=== PATIENT | male | born 1945 | race Caucasian/White ===

== ENCOUNTER 2016-11-06 10:04 | Emergency (ER) | payer OTHER ==
[2016-11-06] MEDS ORDERED: SODIUM CHLORIDE 0.9% 10 ML FLUSH FLUSH PRN (10:06)
[2016-11-06 10:09] VITALS: TEMP 97.5; BMI 27.6
[2016-11-06 10:20] LABS: AUTOMATED BASOPHIL 0.3 % (0-2); AUTOMATED EOSINOPHIL 1.3 % (0-5); AUTOMATED LYMPH 38.6 % (17-44); AUTOMATED MONOCYTE 13.7 % (3-10); AUTOMATED NEUTROPHIL 46.1 % (45-76); MPV 7.2 fL (7.4-10.4)
[2016-11-06 10:30] LABS: PARTIAL THROMB. TIME 42.4 SEC (22-35); PT-INR 1.2
[2016-11-06 10:40] LABS: BLOOD UREA NITROGEN 21 MG/DL (9-20); CALCULATED OSMOLALITY 269 MOs/Kg (270-290); CHLORIDE 102 mEq/L (98-107); GLUCOSE 93 MG/DL (70-99); SODIUM LEVEL 138 mEq/L (137-146); TOTAL PROTEIN 8.3 G/DL (6.3-8.2)
--- NOTE | 2016-11-06 10:51 | EDPRACDOC ---
- General Information Chief Complaint: Abdominal Pain Stated Complaint: WEAKNESS Time Seen by Provider: 11/06/16 10:06 Information Source: Patient Mode Of Arrival: Ambulance Home Medications: Home Medications Celecoxib [Celebrex] 200 mg PO QAM 09/17/12 Donepezil HCl 5 mg PO QHS 09/17/12 Esomeprazole Mag Trihydrate [Nexium] 40 mg PO .DAILY@NOON 09/17/12 Fleet Enema 1 - 2 each [place] DAILY PRN 09/17/12 Levothyroxine [Synthroid, Levoxyl] 100 mcg PO QAM 09/17/12 Polyethylene Glycol 3350 [Miralax] 17 gm PO BID 09/17/12 Venlafaxine HCl [Effexor Xr] 150 mg PO HS 09/17/12 Alendronate Sodium 35 mg PO .QSUNDAY 01/15/15 Docusate Sodium [Stool Softener] 100 mg PO BID 01/15/15 Fenofibrate [Lofibra] 160 mg PO HS 01/15/15 Methenamine Hippurate [Hiprex] 1 gm PO QAM 01/15/15 Morphine Sulfate [Avinza] 60 mg PO DAILY 01/15/15 Oxycodone HCl [Oxycodone Immediate Release] 15 mg PO Q4-6H PRN 01/15/15 Pregabalin [Lyrica] 75 mg PO QID 01/15/15 Ranitidine HCl 300 mg PO HS 01/15/15 Testosterone [Androderm] 4 mg TD DAILY 01/15/15 Clonazepam [Klonopin] 1 mg PO HS 03/12/16 Carisoprodol [Soma] 175 - 350 mg PO Q8H PRN 11/06/16 Carvedilol [Coreg] 6.25 mg PO BID PRN 11/06/16 Cholecalciferol (Vitamin D3) [Vitamin D3] 1,000 unit PO QAM 11/06/16 Clotrimazole & Betamethasone [Lotrisone Cream] 45 gm TOP BID #1 tube 11/06/16 Fesoterodine Fumarate [Toviaz] 8 mg PO QAM 11/06/16 L.acidoph & Paracasei,B.lactis [Probiotic] 1 each PO DAILY 11/06/16 Nitrofurantoin [Macrobid] 100 mg PO BID #20 cap 11/06/16 Ondansetron HCl [Zofran] 4 mg PO Q6H PRN #20 tab 11/06/16 Sulfamethoxazole/Trimethoprim [Bactrim Ds Tablet] 1 tab PO BID 11/06/16 Tamsulosin HCl [Flomax] 0.4 mg PO DAILY 11/06/16 Allergies/Adverse Reactions: Allergies Allergy/AdvReac Type Severity Reaction Status Date / Time aspirin Allergy hemophilia Verified 11/06/16 12:02 ciprofloxacin [From Cipro] Allergy rash, Verified 11/06/16 12:02 burning, itching ciprofloxacin HCl Allergy rash, Verified 11/06/16 12:02 [From Cipro] burning, itching diazepam [From Valium] Allergy Confusion Verified 11/06/16 12:02 levofloxacin [From Levaquin] Allergy rash, Verified 11/06/16 12:02 burning, itching vancomycin Allergy Red Man Verified 11/06/16 12:02 Syndrome - History of Present Illness Onset: today HPI: PT PRESENTS TODAY VIA EMS FROM HOME. PTS MAIN COMPLAINT IS THAT HE IS HAVING AOC LEFT CHEST WALL PAIN FROM A FALL YEARS AGO, CAUSING HIM TO BECOME A PARAPLEGIC. PTS REPORTED TO EMS THAT PT HAS VOMITED SEVERAL TIMES THIS MORNING AND WHEN SHE CATHED THE PT, SHE GOT MINIMAL URINE. Pain Context: Reports: Spontaneous Pain Quality: Reports: Sharp Pain Radiation: Reports: No Radiation Modifying Factors: improves with: Movement Associated Signs & Symptoms: Reports: Nausea, Vomiting, Other (NO URINE IN CATH) Oral Intake: Normal Urinary Output: Normal - Treatment Prior to ED Arrival Reported Medications/Treatment [employer] Treatment BLS IV No ED Past Medical History - History Reviewed Yes Nurses notes reviewed and agree except as marked - Patient Medical History Neurological History: Reports: Dementia Cardiac History: Reports: Hypertension, Hypercholesterolemia Respiratory History: Reports: COPD GI/ History: Reports: Urinary Tract Infection Psychological History: Reports: Depression, Anxiety. Denies: Substance Use Disorder Systemic History: Reports: Diabetes, Hyperthyroidism Additional Past Medical History: T9 PARAPLEGIA SECONDARY TO BACK FRACTURE (FALL FROM BUILDING) Surgical History: Reports: Cholecystectomy - Family Medical History Reports: Hypertension, Diabetes (Mother had diabetes), Cancer (brother), Stroke (Father at the age of 90 with CHF and previous stroke), Cardiac Disorders ( Both parents with congestive heart failure) - Social Medical History Smoking Status: Never smoker Social History: Denies: Substance Use Disorder EDM Review of Systems - Review of Systems ROS Negative Except as Marked: Yes All systems reviewed and were negative except as marked ROS Unobtainable: Yes Hx Limited due to age/level of understanding of patient Constitutional: No Symptoms Reported Respiratory: Cough (PT STATES "SOMETIMES") Cardiovascular: No Symptoms Reported Gastrointestinal: Nausea, Vomiting Genitourinary: Other Neurological: No Symptoms Reported Musculoskeletal: Chestwall Integumentary: No Symptoms Reported - Physical Exam Constitutional: Alert (Awake), No apparent distress Oriented to: Time, Person, Place Last recorded Vital Signs: Last Vital Signs Temp 97.5 F 11/06/16 10:06 Pulse 93 11/06/16 12:21 Resp 17 11/06/16 12:21 BP 154/72 11/06/16 12:21 Pulse Ox 98 11/06/16 12:21 Oxygen Pulse Oxygen Saturation 98 O2 Device Room Air Oxygen Flow Rate Fraction of Inspired Oxygen ( FIO2) - HEENT Head: Normal Eye Exam: Normal Neck: Normal, Denies Pain, Midline - Respiratory/Cardiovascular Respiratory: Normal - CTA, Other (PT STATES TTP TO LEFT CHEST WALL THAT IS CHRONIC FOR HIM; NOTED MULTIPLE AREAS OF TINEA CORPORIS TO CHEST WALL AND BACK W /OUT SECONDARY INFECTION) Cardiovascular: Normal - GI Palpation: Normal Tenderness: Non tender - Musculoskeletal Back: Normal Extremities: Normal, Other (NOTED CHRONIC ATROPHY FROM PARAGLEGIA; NO PITTING EDEMA; CHRONIC WOUND TO LEFT FOOT THAT DOES NOT APPEAR ACUTELY INFECTED) - Integumentary Skin: Normal Lymphatics: Normal - Neurologic Cerebellar: Normal Mood Description: Normal Thought: Coherent Perception: Normal - Re-evaluation Re-evaluation 1 Re-evaluation Time: 12:13 PT RESTING. BETTER AFTER PAIN MEDICATION. NOTED UTI. STATES PT HAS ALMOST COMPLETED 10 DAYS OF BACTRIM TREATMENT FOR THIS, HOWEVER, WHEN LOOKING AT PTS OLD URINE CULTURES, URINE WAS RESISTANT TO BACTRIM. GAVE ROCEPHIN IV HERE AND WILL SEND HOME WITH MACROBID. - Results 11/06/16 10:10 11/06/16 10:10 WBC 8.4 xk/uL (3.8-10.8) 11/06/16 10:10 RBC 4.79 xM/uL (4.70-6.10) 11/06/16 10:10 Hgb 13.7 g/dL (14.0-18.0) L 11/06/16 10:10 Hct 40.7 % (42-52) L 11/06/16 10:10 MCV 85 fL (80-94) 11/06/16 10:10 MCH 28.7 pg (27-32) 11/06/16 10:10 MCHC 33.8 g/dl (33-36) 11/06/16 10:10 RDW 15.7 % (11.5-14.5) H 11/06/16 10:10 Plt Count 182 xk/uL (130-400) 11/06/16 10:10 MPV 7.2 fL (7.4-10.4) L 11/06/16 10:10 Neut % (Auto) 46.1 % (45-76) 11/06/16 10:10 Lymph % (Auto) 38.6 % (17-44) 11/06/16 10:10 [place] % (Auto) 13.7 % (3-10) H 11/06/16 10:10 Eos % (Auto) 1.3 % (0-5) 11/06/16 10:10 Baso % (Auto) 0.3 % (0-2) 11/06/16 10:10 Absolute Neuts (auto) 3.86 xk/uL (1.7-8.2) 11/06/16 10:10 Absolute Lymphs (auto) 3.19 xk/uL (0.65-4.75) 11/06/16 10:10 PT 12.0 SEC (9.2-11.2) H 11/06/16 10:10 INR 1.2 11/06/16 10:10 APTT 42.4 SEC (22-35) H 11/06/16 10:10 Sodium 138 mEq/L (137-146) 11/06/16 10:10 Potassium 4.3 mEq/L (3.5-5.1) 11/06/16 10:10 Chloride 102 mEq/L (98-107) 11/06/16 10:10 Carbon Dioxide 22 mMOL/L (22-33) 11/06/16 10:10 Anion Gap 18 mEq/L (8-16) H 11/06/16 10:10 BUN 21 MG/DL (9-20) H 11/06/16 10:10 Creatinine 1.80 MG/DL (0.66-1.25) H 11/06/16 10:10 Estimated GFR (MDRD) 38 mL/min (>=60) L 11/06/16 10:10 Glucose 93 MG/DL (70-99) 11/06/16 10:10 Calculated Osmolality 269 MOs/Kg (270-290) L 11/06/16 10:10 Calcium 10.0 MG/DL (8.4-10.2) 11/06/16 10:10 Total Bilirubin 0.6 MG/DL (0.2-1.3) 11/06/16 10:10 AST 36 IU/L (17-59) 11/06/16 10:10 ALT 32 IU/L (21-72) 11/06/16 10:10 Alkaline Phosphatase 56 IU/L (50-160) 11/06/16 10:10 Troponin I < 0.01 ng/mL (<.04) 11/06/16 10:10 Total Protein 8.3 G/DL (6.3-8.2) H 11/06/16 10:10 Albumin 4.2 G/DL (3.5-5.0) 11/06/16 10:10 Urine Color Yellow 11/06/16 10:22 Urine Clarity Hazy 11/06/16 10:22 Urine pH 7.0 (5.0-8.0) 11/06/16 10:22 Ur Specific [place] 1.005 (1.003-1.035) 11/06/16 10:22 Urine Protein 1+ (NEG/TRACE) H 11/06/16 10:22 Urine Glucose (UA) Neg (NEGATIVE) 11/06/16 10:22 Urine Ketones Neg (NEGATIVE) 11/06/16 10:22 Urine Occult Blood 3+ (NEG/TRACE) H 11/06/16 10:22 Urine Nitrite Pos (NEGATIVE) H 11/06/16 10:22 Urine Bilirubin Neg (NEGATIVE) 11/06/16 10:22 Urine Urobilinogen <2.0 MG/DL (0-1) 11/06/16 10:22 Ur Leukocyte Esterase 2+ (NEGATIVE) H 11/06/16 10:22 Urine RBC 10-20 (0-2) H 11/06/16 10:22 Urine WBC Tntc (0-2) H 11/06/16 10:22 Urine WBC Clumps Present (NONE) H 11/06/16 10:22 Ur Epithelial Cells 1+ 11/06/16 10:22 Amorphous Sediment 1+ 11/06/16 10:22 Urine Bacteria 4+ (NEG/FEW) H 11/06/16 10:22 Lab Results 11/06/16 11/06/16 11/06/16 10:22 10:10 10:10 WBC 8.4 RBC 4.79 Hgb 13.7 L Hct 40.7 L MCV 85 MCH 28.7 MCHC 33.8 RDW 15.7 H Plt Count 182 MPV 7.2 L Neut % (Auto) 46.1 Lymph % (Auto) 38.6 [place] % (Auto) 13.7 H Eos % (Auto) 1.3 Baso % (Auto) 0.3 Absolute Neuts (auto) 3.86 Absolute Lymphs (auto) 3.19 PT 12.0 H INR 1.2 APTT 42.4 H Sodium Potassium Chloride Carbon Dioxide Anion Gap BUN Creatinine Estimated GFR (MDRD) Glucose Calculated Osmolality Calcium Total Bilirubin AST ALT Alkaline Phosphatase Troponin I Total Protein Albumin Urine Color Yellow Urine Clarity Hazy Urine pH 7.0 Ur Specific [place] 1.005 Urine Protein 1+ H Urine Glucose (UA) Neg Urine Ketones Neg Urine Occult Blood 3+ H Urine Nitrite Pos H Urine Bilirubin Neg Urine Urobilinogen <2.0 Ur Leukocyte Esterase 2+ H Urine RBC 10-20 H Urine WBC Tntc H Urine WBC Clumps Present H Ur Epithelial Cells 1+ Amorphous Sediment 1+ Urine Bacteria 4+ H 11/06/16 10:10 WBC RBC Hgb Hct MCV MCH MCHC RDW Plt Count MPV Neut % (Auto) Lymph % (Auto) [place] % (Auto) Eos % (Auto) Baso % (Auto) Absolute Neuts (auto) Absolute Lymphs (auto) PT INR APTT Sodium 138 Potassium 4.3 Chloride 102 Carbon Dioxide 22 Anion Gap 18 H BUN 21 H Creatinine 1.80 H Estimated GFR (MDRD) 38 L Glucose 93 Calculated Osmolality 269 L Calcium 10.0 Total Bilirubin 0.6 AST 36 ALT 32 Alkaline Phosphatase 56 Troponin I < 0.01 Total Protein 8.3 H Albumin 4.2 Urine Color Urine Clarity Urine pH Ur Specific [place] Urine Protein Urine Glucose (UA) Urine Ketones Urine Occult Blood Urine Nitrite Urine Bilirubin Urine Urobilinogen Ur Leukocyte Esterase Urine RBC Urine WBC Urine WBC Clumps Ur Epithelial Cells Amorphous Sediment Urine Bacteria - EKG EKG #1 EKG Time: 10:12 -: Yes EKG interpreted by me Rate: bpm: 91 [place]: Normal Rhythm: NSR Block: RBBB Hypertrophy: None ST: Normal Comparison: 03/13/16 - Departure Disposition: Home Condition: Improved Final Diagnosis: Urinary tract infection, E. coli, Dehydration Nausea and vomiting Qualifiers: Vomiting type: unspecified Vomiting Intractability: non-intractable Qualified Code(s): R11.2 - Nausea with vomiting, unspecified Instructions: Urinary Tract Infection in Men (ED), Dysuria, Acute Nausea and Vomiting (ED) Education/Counseling Given To: Patient, Family Member Education/Counseling Given Regarding: Diagnosis, Treatment, Follow Up Referrals: Gagan Bruno MD [Primary Care Provider] - One Week Prescriptions: Clotrimazole & Betamethasone [Lotrisone Cream] 45 gm TOP BID #1 tube Nitrofurantoin [Macrobid] 100 mg PO BID #20 cap Ondansetron HCl [Zofran] 4 mg PO Q6H PRN #20 tab PRN Reason: Nausea/Vomiting Additional Instructions: STOP THE BACTRIM. DRINK PLENTY OF FLUIDS TO KEEP BLADDER CLEAN. FOLLOW UP WITH PCP IN 3 DAYS FOR REPEAT URINE SAMPLE.
[2016-11-06] MEDS ORDERED: HYDROmorphone 1 MG INJECTION IV ONE (10:53)
--- NOTE | 2016-11-06 10:59 | DIRPT ---
CLINICAL DATA: Chest pain EXAM: PORTABLE CHEST 1 VIEW COMPARISON: None. FINDINGS: There is no focal parenchymal opacity. There is no pleural effusion or pneumothorax. The heart and mediastinal contours are unremarkable. There are posterior spinal fixation rods. There is a right shoulder arthroplasty. IMPRESSION: No active disease. Electronically Signed By: Gema Fiore On: 11/06/2016 10:56
[2016-11-06 11:10] LABS: AMORPHOUS 1+; LEUKOCYTES/URINE 2+ (NEGATIVE); URINE OCCULT BLOOD 3+ (NEG/TRACE); WBC/URINE TNTC (0-2)
[2016-11-06 11:13] LABS: NITRITE/URINE POS (NEGATIVE)
[2016-11-06] MEDS: NS 1,000 ML IV SCH ×2 (11:13→12:20)
[2016-11-06] MEDS ORDERED: CEFTRIAXONE 1 GM in D5W 100 ML IV ONE (11:17)
[2016-11-06 13:07] VITALS: BP 161/69; PULSE 88
== END 2016-11-06 13:57 | disposition home or self-care (01) ==
LOC: ED 10:04
DX: N39.0 Urinary tract infection, site not specified (principal); B96.20 Unspecified Escherichia coli [E. coli] as the cause of diseases classified elsewhere; E86.0 Dehydration; R11.2 Nausea with vomiting, unspecified; R07.89 Other chest pain; G89.29 Other chronic pain; B35.4 Tinea corporis; F03.90 Unspecified dementia, unspecified severity, without behavioral disturbance, psychotic disturbance, mood disturbance, and anxiety; I10 Essential (primary) hypertension; E78.00 Pure hypercholesterolemia, unspecified; J44.9 Chronic obstructive pulmonary disease, unspecified; E11.9 Type 2 diabetes mellitus without complications; E05.90 Thyrotoxicosis, unspecified without thyrotoxic crisis or storm; G82.20 Paraplegia, unspecified; S91.302A Unspecified open wound, left foot, initial encounter; X58.XXXA Exposure to other specified factors, initial encounter; Z79.899 Other long term (current) drug therapy
CPT/HCPCS: 36415; 71010; 80053; 81001; 84484; 85025; 85610; 85730; 87077; 87086; 87186; 93005; 96361; 96365; 96375; 99284; J0696; J1170; J7060

== ENCOUNTER 2016-11-15 13:16 | Emergency (ER) | payer OTHER ==
[2016-11-15] MEDS ORDERED: SODIUM CHLORIDE 0.9% 10 ML FLUSH FLUSH PRN (13:30)
[2016-11-15] MEDS ORDERED: NS 1,000 ML IV ONE (13:30)
--- NOTE | 2016-11-15 13:34 | EDPRACDOC ---
- General Information Stated Complaint: HYPERTENSION,FLU LIKE SYMPTOMS Time Seen by Provider: 11/15/16 13:27 Home Medications: Home Medications Celecoxib [Celebrex] 200 mg PO QAM 09/17/12 Donepezil HCl 5 mg PO QHS 09/17/12 Esomeprazole Mag Trihydrate [Nexium] 40 mg PO .DAILY@NOON 09/17/12 Fleet Enema 1 - 2 each [place] DAILY PRN 09/17/12 Levothyroxine [Synthroid, Levoxyl] 100 mcg PO QAM 09/17/12 Polyethylene Glycol 3350 [Miralax] 17 gm PO BID 09/17/12 Venlafaxine HCl [Effexor Xr] 150 mg PO HS 09/17/12 Alendronate Sodium 35 mg PO .QSUNDAY 01/15/15 Docusate Sodium [Stool Softener] 100 mg PO BID 01/15/15 Fenofibrate [Lofibra] 160 mg PO HS 01/15/15 Methenamine Hippurate [Hiprex] 1 gm PO QAM 01/15/15 Morphine Sulfate [Avinza] 60 mg PO DAILY 01/15/15 Oxycodone HCl [Oxycodone Immediate Release] 15 mg PO Q4-6H PRN 01/15/15 Pregabalin [Lyrica] 75 mg PO QID 01/15/15 Ranitidine HCl 300 mg PO HS 01/15/15 Testosterone [Androderm] 4 mg TD DAILY 01/15/15 Clonazepam [Klonopin] 1 mg PO HS 03/12/16 Carisoprodol [Soma] 175 - 350 mg PO Q8H PRN 11/06/16 Carvedilol [Coreg] 6.25 mg PO BID PRN 11/06/16 Cholecalciferol (Vitamin D3) [Vitamin D3] 1,000 unit PO QAM 11/06/16 Clotrimazole & Betamethasone [Lotrisone Cream] 45 gm TOP BID #1 tube 11/06/16 Fesoterodine Fumarate [Toviaz] 8 mg PO QAM 11/06/16 L.acidoph & Paracasei,B.lactis [Probiotic] 1 each PO DAILY 11/06/16 Nitrofurantoin [Macrobid] 100 mg PO BID #20 cap 11/06/16 Ondansetron HCl [Zofran] 4 mg PO Q6H PRN #20 tab 11/06/16 Tamsulosin HCl [Flomax] 0.4 mg PO DAILY 11/06/16 Allergies/Adverse Reactions: Allergies Allergy/AdvReac Type Severity Reaction Status Date / Time aspirin Allergy hemophilia Verified 11/06/16 12:02 ciprofloxacin [From Cipro] Allergy rash, Verified 11/06/16 12:02 burning, itching ciprofloxacin HCl Allergy rash, Verified 11/06/16 12:02 [From Cipro] burning, itching diazepam [From Valium] Allergy Confusion Verified 11/06/16 12:02 levofloxacin [From Levaquin] Allergy rash, Verified 11/06/16 12:02 burning, itching vancomycin Allergy Red Man Verified 11/06/16 12:02 Syndrome - History of Present Illness HPI: FEELS BAD AND HURTS ALL OVER. HX OF PARAPLEGIA AFTER A FALL OFF A LADDER IN 2002 AND DEMENTIA. HERE WITH CHRONIC PAIN. PT HAS WELL KNOWN CHRONIC PAIN AND UTI'S. Pain Quality: Reports: Aching ED Past Medical History - History Reviewed Information Unobtainable: Yes Unable to obtain information due to patient condition - Patient Medical History Neurological History: Reports: Dementia Cardiac History: Reports: Hypertension, Hypercholesterolemia Respiratory History: Reports: COPD GI/ History: Reports: Urinary Tract Infection Psychological History: Reports: Depression, Anxiety. Denies: Substance Use Disorder Systemic History: Reports: Diabetes, Hyperthyroidism Additional Past Medical History: T9 PARAPLEGIA SECONDARY TO BACK FRACTURE (FALL FROM BUILDING) Surgical History: Reports: Cholecystectomy - Family Medical History Reports: Hypertension, Diabetes (Mother had diabetes), Cancer (brother), Stroke (Father at the age of 90 with CHF and previous stroke), Cardiac Disorders ( Both parents with congestive heart failure) - Social Medical History Smoking Status: Never smoker Social History: Denies: Substance Use Disorder EDM Review of Systems - Review of Systems ROS Unobtainable: Yes Review of systems cannot be obtained due to the patient's medical condition - Physical Exam Constitutional: No apparent distress Oriented to: Person Last recorded Vital Signs: Oxygen Pulse Oxygen Saturation O2 Device Oxygen Flow Rate Fraction of Inspired Oxygen ( FIO2) - HEENT Head: Normal ( normocephalic) Eye Exam: Normal (PERRL, EOMI, Sclera white) Oropharynx: Normal (Pharynx:Moist without exudate,Gums-no swelling) Tympanic Membrane: Normal ENT EAC: Normal TMJ: Normal Nose: No Symptoms Reported (septum midline) Neck: Normal (FROM, trachea at midline) - Respiratory/Cardiovascular Respiratory: Normal - CTA (BBS clear to auscultation without adventitious sounds ) Cardiovascular: Normal (RRR without murmur, gallop or rub) - GI Auscultation: Normal (NABS) Palpation: Normal (Soft,No rebound or guarding, non distended) Tenderness: Non tender Khan's Sign: Negative - Musculoskeletal Back: Normal (Non-Tender) Extremities: Normal (Normal tone, Pulses 2+ No cyanosis or edema, FROM) - Integumentary Skin: Normal, Warm, Dry Lymphatics: Normal (no adenopathy) - Neurologic Memory Impaired: Unable to Test Motor Function: Normal (Normal tone, Pulses 2+ No cyanosis or edema, FROM) Cranial Nerve: Normal (CN II-X11 intact sensation, strength 5/5) Cerebellar: Normal - Results 11/15/16 14:12 11/15/16 14:12 - EKG EKG #1 [place]: Normal Rhythm: NSR Block: RBBB Hypertrophy: None ST: Normal Decision Time to Discharge: 14:56 - Departure Yes I personally saw and evaluated the patient. Disposition: Home Condition: Good Final Diagnosis: Attacks of weakness, Generalized aches and pains Instructions: Weakness (General) Education/Counseling Given To: Patient, Family Member Education/Counseling Given Regarding: Diagnosis, Treatment, Prognosis
[2016-11-15 13:51] VITALS: BMI 28.7
--- NOTE | 2016-11-15 14:12 | DIRPT ---
CLINICAL DATA: Chest pain. Flu-like symptoms. Dementia. EXAM: PORTABLE CHEST 1 VIEW COMPARISON: 11/06/2016 FINDINGS: The heart size and mediastinal contours are within normal limits. Mild scarring again seen in left retrocardiac lung base. The lungs are otherwise clear. No evidence of pneumothorax or pleural effusion. Posterior spinal fixation rods in right shoulder prosthesis again noted as well as old left clavicle fracture deformity. IMPRESSION: Stable exam. No active disease. Electronically Signed By: Carlos Atkinson M.D. On: 11/15/2016 14:10
[2016-11-15 14:21] LABS: LEUKOCYTES/URINE NEG (NEGATIVE); NITRITE/URINE NEG (NEGATIVE); RBC/URINE 40-50 (0-2); URINE OCCULT BLOOD 2+ (NEG/TRACE); WBC/URINE 0-2 (0-2)
[2016-11-15 14:39] LABS: BLOOD UREA NITROGEN 28 MG/DL (9-20); CALCIUM 10.6 MG/DL (8.4-10.2); CALCULATED OSMOLALITY 273 MOs/Kg (270-290); CHLORIDE 104 mEq/L (98-107); GLUCOSE 87 MG/DL (70-99); SODIUM LEVEL 139 mEq/L (137-146); TOTAL PROTEIN 8.2 G/DL (6.3-8.2)
[2016-11-15 14:41] LABS: AUTOMATED BASOPHIL 0.4 % (0-2); AUTOMATED EOSINOPHIL 1.5 % (0-5); AUTOMATED LYMPH 34.3 % (17-44); AUTOMATED MONOCYTE 11.9 % (3-10); AUTOMATED NEUTROPHIL 51.9 % (45-76); MPV 7.4 fL (7.4-10.4)
[2016-11-15 14:44] LABS: PARTIAL THROMB. TIME 39.7 SEC (22-35); PT-INR 1.1
[2016-11-15 16:52] VITALS: BP 188/80; PULSE 76; TEMP 98.6
== END 2016-11-15 16:20 | disposition home or self-care (01) ==
LOC: ED 13:16
DX: R53.1 Weakness (principal); R52 Pain, unspecified
CPT/HCPCS: 36415; 71010; 80053; 81001; 84484; 85025; 85610; 85730; 93005; 96360; 96361; 99284